=== PATIENT | female | born 2000 | race Two or more races ===

== ENCOUNTER 2021-06-07 13:40 | Observation (INO) | payer MEDICAID ==
[2021-06-07] MEDS ORDERED: PREN-96 PO (14:35)
[2021-06-07 14:57] LABS: Urine Bacteria FEW /hpf (None Seen); Urine Blood Negative /uL (Negative); Urine Mucus FEW (None Seen); Urine Specific Gravity 1.019 (1.001-1.035); Urine WBC 10 /hpf (0 - 5)
== END 2021-06-07 16:07 | disposition home or self-care (01) ==
LOC: LDRP 13:40
PROVIDERS: ADMIT Obstetrics & Gynecology; ATTEND Obstetrics & Gynecology
DX: O62.9 Abnormality of forces of labor, unspecified (principal); O26.893 Other specified pregnancy related conditions, third trimester; R42 Dizziness and giddiness; Z3A.31 31 weeks gestation of pregnancy; Z79.899 Other long term (current) drug therapy
CPT/HCPCS: 59025; 81001; 81002; 87086; 94760; G0378

== ENCOUNTER 2021-07-08 12:33 | Observation (INO) | payer MEDICAID ==
[~2021-07-08] VITALS: Ht 162.6 cm; Wt 83.9 kg
[~2021-07-08 12:33] MED LIST: PREN-96 PO
== END 2021-07-08 14:59 | disposition home or self-care (01) ==
LOC: LDRP 12:33
PROVIDERS: ADMIT Obstetrics & Gynecology; ATTEND Obstetrics & Gynecology
DX: O42.913 Preterm premature rupture of membranes, unspecified as to length of time between rupture and onset of labor, third trimester (principal); O26.853 Spotting complicating pregnancy, third trimester; Z3A.36 36 weeks gestation of pregnancy
CPT/HCPCS: 59025; 76815; 81002; 84112; 94760; G0378; Q0114

== ENCOUNTER 2021-07-10 14:24 | Observation (INO) | payer MEDICAID ==
[2021-07-10 15:44] LABS: Alcohol, Urine < 3.0 mg/dL (0-10); Amphetamine Screen, Urine NEGATIVE (NEGATIVE); Barbiturate Scree,Urine NEGATIVE (NEGATIVE); Benzodiazephine Screen, Urine NEGATIVE (NEGATIVE); Cannabinoid Screen, Urine NEGATIVE (NEGATIVE); Cocaine Screen, Urine NEGATIVE (NEGATIVE); Opiate Scree,Urine NEGATIVE (NEGATIVE); Phencyclidine Screen, Urine NEGATIVE (NEGATIVE)
== END 2021-07-10 15:50 | disposition home or self-care (01) ==
LOC: LDRP 14:24
PROVIDERS: ADMIT Obstetrics & Gynecology Obstetrics; ATTEND Obstetrics & Gynecology Obstetrics
DX: O36.8130 Decreased fetal movements, third trimester, not applicable or unspecified (principal); Z3A.36 36 weeks gestation of pregnancy
CPT/HCPCS: 59025; 80307; 81002; 86703; 94760; G0378

== ENCOUNTER 2021-07-13 12:40 | Inpatient (IN) | payer MEDICAID, OTHER ==
[~2021-07-13] VITALS: Ht 162.6 cm; Wt 84.4 kg
[2021-07-13] MEDS ORDERED: LIDOCAINE 2%HCL (LOCAL ANESTH.) INJ 20ML MDV IJ PRN (23:45)
[2021-07-13] MEDS ORDERED: DERMOPLAST 60ML BOTTLE TOP PRN (23:45)
[2021-07-13] MEDS ORDERED: WITCH HAZEL-GLYCERIN PAD TOP PRN (23:45)
[2021-07-13] MEDS ORDERED: PHISODERM TOP SOLN 240ML BTL TOP PRN (23:45)
[2021-07-13] MEDS ORDERED: BUTORPHANOL TARTRATE 2 MG/1 ML VIAL IV PRN ×2 (23:45)
[2021-07-13] MEDS ORDERED: PROMETHAZINE HCL 25 MG/ML 1ML IM PRN (23:45)
[2021-07-14 00:11] LABS: Basophils # (auto) 0 10 ^3/uL (0-0.2); Basophils % (auto) 0.3 % (0.0-2.0); Eosinophils # (auto) 0.2 10 ^3/uL (0-0.8); Hematocrit 30.6 % (36.0-46.0); Lymphocytes % (auto) 15.7 % (10.0-50.0); Red Cell Distribution Width 14.4 % (11.8-14.3)
[2021-07-14 00:13] LABS: Eosinophils % (auto) 1.7 % (0.0-7.0); Hemoglobin 10.2 g/dL (12.2-16.2); Lymphocytes # (auto) 1.9 10 ^3/uL (0.4-5.4); Mean Corpuscular Hemoglobin 26.5 pg (28.0-32.0); Mean Corpuscular Hgb Conc. 33.2 g/dL (32.0-36.0); Monocytes % (auto) 8.1 % (0.0-12.0); Neutrophils # (auto) 9.2 10 ^3/uL (1.6-8.6); Neutrophils % (auto) 74.2 % (37.0-80.0); Nucleated Red Blood Cells % 0.2 %; Red Blood Cells 3.83 10^6/uL (4.0-5.20); White Blood Cell 12.4 10^3/uL (4.4-10.8)
[2021-07-14 00:19] LABS: Albumin 2.9 g/dL (3.4-5.0); BUN/Creatinine Ratio 8.8; Calcium 8.7 mg/dL (8.5-10.1); Potassium 3.9 mmol/L (3.5-5.1)
[2021-07-14 00:22] LABS: Bilirubin, Total 0.2 mg/dL (0.2-1.0); Total Protein 6.4 g/dL (6.4-8.2)
[2021-07-14 00:33] LABS: INR 0.96 (0.9-1.15); Partial Thromboplastin Time 26.7 sec (23.6-33.0)
[2021-07-14 01:01] LABS: Alcohol, Urine < 3.0 mg/dL (0-10); Amphetamine Screen, Urine NEGATIVE (NEGATIVE); Barbiturate Scree,Urine NEGATIVE (NEGATIVE); Benzodiazephine Screen, Urine NEGATIVE (NEGATIVE); Cannabinoid Screen, Urine NEGATIVE (NEGATIVE); Cocaine Screen, Urine NEGATIVE (NEGATIVE); Opiate Scree,Urine NEGATIVE (NEGATIVE)
[2021-07-14 01:03] LABS: Phencyclidine Screen, Urine NEGATIVE (NEGATIVE)
[2021-07-14 01:34] LABS: Urine Amorphous Crystal FEW /hpf (None Seen); Urine Bacteria NONE SEEN /hpf (None Seen); Urine Blood 1+ /uL (Negative); Urine Mucus FEW (None Seen); Urine Specific Gravity 1.014 (1.001-1.035); Urine WBC 4 /hpf (0 - 5)
[2021-07-14] MEDS: LACTATED RINGER'S 1,000 ML IV SCH ×4 (02:32→22:08)
[2021-07-14] MEDS ORDERED: LACT. RINGERS/OXYTOCIN 20UNITS 500 ML IV ONE ×2 (04:30→05:00)
[2021-07-14] MEDS ORDERED: TERBUTALINE SULFATE 1 MG/ML 1ML VIAL SC PRN (04:30)
[2021-07-14] MEDS: LACT. RINGERS/OXYTOCIN 20UNITS 1,000 ML IV SCH (05:03)
[2021-07-14] MEDS: ceFAZolin 1GM/50ML 50 ML IV SCH ×2 (09:11→16:45)
[2021-07-14] MEDS ORDERED: ROPIVACAINE HCL 200 ML EPI SCH ×3 (16:00→18:00)
[2021-07-14] MEDS ORDERED: LIDOCAINE HCL 2 %PF INJ 10ML AMP IJ ONE (16:00)
[2021-07-14] MEDS ORDERED: LACTATED RINGER'S 1,000 ML IV ONE (16:00)
[2021-07-14] MEDS ORDERED: ePHEDrine SULFATE 50 MG/ML AMP IV ONE (16:00)
[2021-07-14] MEDS ORDERED: NALOXONE HCL 0.4 MG/ML VIAL IV ONE (16:00)
[2021-07-14] MEDS ORDERED: fentaNYL CITRATE 100 MCG/2 ML VL IV ONE (16:00)
[2021-07-15] MEDS: ceFAZolin 1GM/50ML 50 ML IV SCH ×2 (01:04→08:25)
[2021-07-15] MEDS ORDERED: ONDANSETRON ODT 4 MG TAB PO PRN (03:15)
[2021-07-15] MEDS: LACT. RINGERS/OXYTOCIN 20UNITS 1,000 ML IV SCH (04:46)
[2021-07-15] MEDS: IBUPROFEN 800 MG TAB PO SCH ×3 (04:46→21:27)
[2021-07-15 06:59] VITALS: BP 87/51
[2021-07-15 07:06] LABS: RPR Non Reactive (Non Reactive)
[2021-07-15] MEDS: ACETAMINOPHEN 325 MG TAB PO PRN ×4 (08:22→23:49)
[2021-07-15] MEDS: FERROUS SULFATE 325mg EC TAB PO SCH ×2 (08:25→17:41)
[2021-07-15 10:55] LABS: Basophils # (auto) 0 10 ^3/uL (0-0.2); Eosinophils # (auto) 0 10 ^3/uL (0-0.8); Eosinophils % (auto) 0.2 % (0.0-7.0)
[2021-07-15 10:57] LABS: Basophils % (auto) 0.2 % (0.0-2.0); Hematocrit 24.7 % (36.0-46.0); Hemoglobin 8.3 g/dL (12.2-16.2); Lymphocytes # (auto) 1.3 10 ^3/uL (0.4-5.4); Lymphocytes % (auto) 7.4 % (10.0-50.0); Mean Corpuscular Hemoglobin 27.4 pg (28.0-32.0); Mean Corpuscular Hgb Conc. 33.7 g/dL (32.0-36.0); Mean Corpuscular Volume 81.2 fL (80.0-100.0); Monocytes % (auto) 5.6 % (0.0-12.0); Neutrophils # (auto) 15.2 10 ^3/uL (1.6-8.6); Neutrophils % (auto) 86.6 % (37.0-80.0); Nucleated Red Blood Cells % 0.2 %; Red Blood Cells 3.04 10^6/uL (4.0-5.20); Red Cell Distribution Width 14.6 % (11.8-14.3); White Blood Cell 17.6 10^3/uL (4.4-10.8)
[2021-07-15 11:30] VITALS: BP 100/54
[2021-07-15 15:00] VITALS: BP 94/50
[2021-07-15 19:00] VITALS: BP 97/59
[2021-07-15] MEDS ORDERED: DOCUSATE SOD 100 MG CAP PO SCH (22:00)
[2021-07-15 23:00] VITALS: BP 108/63
[2021-07-16 03:00] VITALS: BP 100/53
[2021-07-16] MEDS: IBUPROFEN 800 MG TAB PO SCH ×2 (04:30→12:25)
[2021-07-16] MEDS ORDERED: FER325T PO (06:53)
[2021-07-16] MEDS ORDERED: IBUP800T26 PO (06:53)
[2021-07-16] MEDS ORDERED: DOCU100C10 PO (06:53)
[2021-07-16 07:30] VITALS: BP 104/59
[2021-07-16] MEDS: FERROUS SULFATE 325mg EC TAB PO SCH (09:49)
[2021-07-16] MEDS: ACETAMINOPHEN 325 MG TAB PO PRN (09:50)
[2021-07-16] MEDS ORDERED: MEASLES, MUMPS & RUBELLA VAC(MMRII) 0.5ML SC ONE (12:00)
[2021-07-16 12:15] VITALS: BP 101/66
== END 2021-07-16 13:05 | disposition home or self-care (01) | DRG 560 ==
LOC: UNDOADMOB 12:40 → LDRP 12:40 → OBSVTOIN 23:31 → EDUNIT# 23:31 → LDRP 23:36
PROVIDERS: ADMIT Obstetrics & Gynecology; ATTEND Obstetrics & Gynecology
PROC: 10E0XZZ Delivery of Products of Conception, External Approach (ICD-10-PCS; principal; 2021-07-15)
PROC: 0KQM0ZZ Repair Perineum Muscle, Open Approach (ICD-10-PCS; 2021-07-15)
PROC: 3E0R3BZ Introduction of Anesthetic Agent into Spinal Canal, Percutaneous Approach (ICD-10-PCS; 2021-07-15)
PROC: 00HU33Z Insertion of Infusion Device into Spinal Canal, Percutaneous Approach (ICD-10-PCS; 2021-07-15)
DX: O42.92 Full-term premature rupture of membranes, unspecified as to length of time between rupture and onset of labor (principal); Z37.0 Single live birth; R71.0 Precipitous drop in hematocrit; O70.1 Second degree perineal laceration during delivery; Z20.822 Contact with and (suspected) exposure to COVID-19; Z3A.37 37 weeks gestation of pregnancy; O99.02 Anemia complicating childbirth
CPT/HCPCS: 36415; 59025; 59409; 62282; 80053; 80307; 81001; 81002; 84112; 85025; 85610; 85730; 86592; 86850; 86900; 86901; 94760; 96360; 96361; 96365; 96366; G0378; J0690; J2590

== ENCOUNTER → 2021-07-13 12:40 | Observation (INO) | payer MEDICAID ==
[~2021-07-13 12:40] MED LIST changes: +DOCU100C10 PO; +FER325T PO; +IBUP800T26 PO
== END | disposition home or self-care (01) ==
LOC: LDRP 12:40
PROVIDERS: ADMIT Obstetrics & Gynecology; ATTEND Obstetrics & Gynecology
DX: O26.893 Other specified pregnancy related conditions, third trimester (principal); R10.32 Left lower quadrant pain; R10.31 Right lower quadrant pain; O99.891 Other specified diseases and conditions complicating pregnancy; M54.9 Dorsalgia, unspecified; Z3A.37 37 weeks gestation of pregnancy
CPT/HCPCS: 59025; 76818; 81002; 94760; G0378